=== PATIENT | male | born 1960 | race Hispanic/Latino ===

== ENCOUNTER 2017-01-22 12:25 | Day surgery (SDC) | payer MEDICAID ==
--- NOTE | 2017-01-21 10:16 | Anesthesia Consultation ---
Anesthesia Consult and Med Hx Date of service: 01/22/17 - Airway Anesthetic Teeth Evaluation: Poor ROM Head & Neck: Adequate Mental/Hyoid Distance: Adequate Mallampati Class: Class III Intubation Access Assessment: Probably Good - Pulmonary Exam CTA: Yes - Cardiac Exam Cardiac Exam: RRR - Pre-Operative Health Status ASA Pre-Surgery Classification: ASA3 Proposed Anesthetic Plan: General - Pulmonary Hx Smoking: Yes (2 PPD X 30 YRS) COPD: Yes (NO MEDS, denies diagnosis) Hx Sleep Apnea: No (ANTONI PRE SCREEN HIGH RISK) - Cardiovascular System Hx Hypertension: Yes (X 15 YRS) Hx Heart Attack/AMI: Yes (X 3- LAST ONE 2012) Hx Peripheral Vascular Disease: Yes (LEGS) - Central Nervous System Hx Back Pain: Yes (NECK AND BACK PAIN) - Endocrine Hx Insulin Dependent Diabetes: Yes (Takes metformin, also takes insulin when BS> 200) Hx Hypothyroidism: Yes - Other Systems Hx Substance Use: Yes (OCC MARIJUANA) Hx Cancer: No - Additional Comments Anesthesia Medical History Comments: Limited capacity as a historian. Denies previous anesthesia complications. Instructed to take metoprolol, preop. Metal in face, due to facial reconstruction.
[2017-01-21 11:13] LABS: Eosinophils % (Auto) 2.9 % (0.0-4.3); Hematocrit 40.7 % (35.5-45.6); Hemoglobin 13.5 gm/dl (11.8-15.2); Mean Corpuscular HGB Conc 33 % (32-34); Mean Corpuscular Hemoglobin 29 pg (28-32); Mean Corpuscular Volume 89 fl (84-94); Platelet Count 235 K/mm3 (140-440); Red Cell Distribution Width 14.8 % (13.2-15.2); White Blood Count 8.6 K/mm3 (4.5-11.0)
[2017-01-21 11:25] LABS: INR 0.95 (0.87-1.13); Partial Thromboplastin Time 27.1 Sec. (24.2-36.6)
[2017-01-21 11:40] LABS: Alanine Aminotransferase 18 units/L (7-56); Albumin 4.1 g/dL (3.9-5); Albumin/Globulin Ratio 1.4 %; Alkaline Phosphatase 88 units/L (35-129); Anion Gap 21 mmol/L; Blood Urea Nitrogen 13 mg/dL (9-20); Calcium 8.9 mg/dL (8.4-10.2); Carbon Dioxide 22 mmol/L (22-30); Chloride 100.7 mmol/L (98-107); Glucose 147 mg/dL (75-100); Potassium 3.7 mmol/L (3.6-5.0); Sodium 140 mmol/L (137-145); Total Protein 7.1 g/dL (6.3-8.2)
--- NOTE | 2017-01-22 08:52 | Short Stay Summary ---
Short Stay Documentation Date of service: 01/22/17 Narrative H&P: 56 yr old male last office visit -[facility] / GUARD PRESENT / CAD S/P ANGIOPLASTY [place] MAIN - S/P WI---ON BLOOD THINNER / HERNIA --VENTRAL/ NOCTURIA X 3-4 / PSA 22---HX OF ELEVATED PSA --SEEN BY DR. Crystal VILLA IN PAST FATHER HAD PROSTATE CANCER/ MOTHER BREAST & KIDNEY CANCER CLEARANCE TO--STOP BLOOD THINNER CYSTO, RPG, PROSTATE BX (PUS BX) - History Past Medical History: acute [place], CAD, hypertension, hypothyroidism Past Surgical History: PTCA Social history: no significant social history - Allergies and Medications Current Medications: Allergies codeine Adverse Reaction (Verified 01/16/17 15:25) Rash Home Medications Medication Instructions Recorded Confirmed Last Taken Type ALPRAZolam [Xanax TAB] 0.25 mg PO BID PRN 01/16/17 01/16/17 Unknown History Aspirin [Adult Low Dose Aspirin EC] 81 mg PO DAILY 01/16/17 01/16/17 Unknown History AtorvaSTATin [Lipitor] 40 mg PO DAILY 01/16/17 01/16/17 Unknown History Cefuroxime [Ceftin] 250 mg PO Q12H 01/16/17 01/16/17 Unknown History Clopidogrel Bisulfate [Plavix] 75 mg PO DAILY 01/16/17 01/16/17 Unknown History Gabapentin [Neurontin] 300 mg PO BID 01/16/17 01/16/17 Unknown History Insulin NPH/Regular [NovoLIN 70/30] 4 units SUB-Q TID 01/16/17 01/16/17 Unknown History Levothyroxine [Synthroid] 100 mcg PO QAM 01/16/17 01/16/17 Unknown History Metoprolol [Lopressor] 25 mg PO DAILY 01/16/17 01/16/17 Unknown History Nitroglycerin [Nitrostat] 0.4 mg SL Q5M PRN 01/16/17 01/16/17 12/26/16 History Paroxetine HCl [Paroxetine ER] 25 mg PO DAILY 01/16/17 01/16/17 Unknown History Ranitidine HCl [Zantac 150 MG TAB] 150 mg PO BID 01/16/17 01/16/17 Unknown History amLODIPine [Norvasc] 10 mg PO DAILY 01/16/17 01/16/17 Unknown History busPIRone [Buspar] 15 mg PO BID 01/16/17 01/16/17 Unknown History metFORMIN [Glucophage] 500 mg PO BID 01/16/17 01/16/17 Unknown History Active Medications Cefazolin Sodium (Ancef/Sterile Water 2 Gm/20 Ml) 2 gm IV PREOP NR Stop: 01/22/17 23:02 Famotidine (Pepcid) 20 mg IV PREOP NR Stop: 01/22/17 23:59 Sodium Chloride (Nacl 0.9% 1000 Ml) 1,000 mls @ 42 mls/hr IV DIRECT TAWNY Stop: 01/22/17 23:59 Midazolam HCl (Versed) 2 mg IV PREOP PRN PRN Reason: Agitation Stop: 01/22/17 23:59 - Physical exam General appearance: no acute distress, well-nourished Integumentary: no rash, no growths HEENT: Atraumatic, PERRLA, EOMI Lungs: Clear to auscultation, Normal air movement Breasts: deferred Heart: Regular rate, No murmurs Gastrointestinal: normal Extremities: no ischemia, No edema Neurological: Normal gait, Normal tone - Brief post op/procedure progress note Date of procedure: 01/22/17 Pre-op diagnosis: elevated psa, bph Post-op diagnosis: same Procedure: ccccysto, rpg, pus 30cc, bx prostate Anesthesia: GETA Surgeon: TAURUS WRIGHT Estimated blood loss: minimal Pathology: list (prostate cores) Specimen disposition: to lab Condition: stable - Hospital course Hospital course: cesar & nataliia on chart - Disposition Condition at discharge: Stable Disposition: DISCHARGED TO HOME OR SELFCARE Short Stay Discharge Plan Follow up with: RADHA JACOBSEN MD [Primary Care Provider] - 7 Days
[~2017-01-22 12:25] MED LIST: ANCEF/STERILE WATER 2 GM/20 ML IV NR; NACL 0.9% 1000 ML 1,000 ML IV SCH; PEPCID IV NR; VERSED IV PRN
[2017-01-22] MEDS ORDERED: ZOFRAN IV PRN (13:06)
[2017-01-22] MEDS ORDERED: DILAUDID IV PRN (13:06)
--- NOTE | 2017-01-22 13:06 | Anesthesia Day of Surgery ---
Anesthesia Day of Surgery - Day of Surgery Patient Examined: Yes Patient H&P Reviewed: Yes Patient is NPO: Yes Beta Blockers: Yes
[2017-01-22] MEDS ORDERED: NACL BACTERIOSTATIC INFILTRATI ONE (13:25)
[2017-01-22] MEDS ORDERED: XYLOCAINE MPF 2% ONE (14:04)
[2017-01-22] MEDS ORDERED: ZOFRAN ONE (14:04)
[2017-01-22] MEDS ORDERED: SUBLIMAZE ONE (14:04)
[2017-01-22] MEDS ORDERED: DIPRIVAN 10 MG/ML IV ONE (14:04)
[2017-01-22] MEDS ORDERED: DECADRON ONE (14:04)
[2017-01-22] MEDS ORDERED: ePHEDrine SULFATE ONE (14:50)
[2017-01-22] MEDS ORDERED: GARAMYCIN/NS 120MG/100ML 120 MG/100 ML BAG IV SCH (15:00)
[2017-01-22] MEDS ORDERED: WATER FOR IRRIG STERILE IR ONE (15:09)
--- NOTE | 2017-01-22 15:55 | Post Anesthesia Evaluation ---
- Post Anesthesia Evaluation Patient Participated: Yes Airway Patent: Yes Stable Respiratory Function: Yes Nausea/Vomiting: No Temp > 96.8F: Yes Pain Manageable: Yes Adequeate Hydration: Yes Anesthesia Complications: No Block Receding Appropriately: Not Applicable Patient on Ventilator: No
--- NOTE | 2017-01-22 16:23 | Fluoroscopy Report ---
RETROGRADE PYELOGRAM: There is adequate filling of the ureters and intrarenal collecting systems with no filling defects or anatomic abnormalities identified.
[2017-01-22 17:29] VITALS: BP 108/74
--- NOTE | 2017-01-22 20:46 | Operative Report ---
PREOPERATIVE DIAGNOSIS: Elevated PSA of 22, BPH. POSTOPERATIVE DIAGNOSIS: Elevated PSA of 22, BPH. SECONDARY DIAGNOSIS: Coronary artery disease. PROCEDURE: Cystoscopy, bilateral retrograde pyelograms, transrectal ultrasound and biopsies of prostate (30 mL). SURGEON: Arias Yeung MD ANESTHESIA: General. ESTIMATED BLOOD LOSS: Minimal. FLUIDS: Crystalloid. COMPLICATIONS: No complications. INDICATIONS: This 56-year-old gentleman was seen in the office, was found to have an elevated PSA of 22. It seemed had been seen by Dr. Jair Hamm in the past. He was referred by [facility]. Guard was present for the visit. We discussed options. He agreed to proceed with surgical intervention. He does have a family history of prostate cancer and his mother has breast cancer and kidney cancer. DESCRIPTION OF PROCEDURE: The patient was taken to the operative suite, placed in a supine position. After adequate general anesthesia, placed in a dorsal lithotomy position, prepped and draped in a sterile fashion. Pancystourethroscopy was performed with a 22-Czech Storz cystoscope. No urethral abnormalities. Displayed some mild trilobar prostatic obstruction in his bladder. No tumors or stones were noted. Both ureteral orifices in normal position. Bilateral retrograde pyelograms were obtained with an 8-Czech Nunda catheter and 8 mL of contrast. No filling defects or obstruction. Next, using a transrectal ultrasound probe, measurements were taken in 3 planes. He was noted to have 30 mL gland and no suspicious lesions could be appreciated. A 12-core biopsy was taken, four at the base, four at the mid and apex of the prostate. Rectal exam was benign. He was extubated and taken to recovery room in stable condition. He will go home on Cipro and Dilaudid. Follow up in the office. JOB# [id number] [facility]/AASHISH
--- NOTE | 2017-01-23 08:01 | Ultrasound Report ---
ULTRASOUND GUIDED INTRAOPERATIVE History: Guidance for prostate biopsy, BPH. Findings: Endorectal ultrasound guidance was provided by radiology during prostate biopsy by urology. The prostate gland measures 4.2 x 3.0 x 4.7 cm. Prostate volume measures 31 cc. Impression: Successful prostate biopsy under ultrasound guidance.
== END 2017-01-22 17:10 | disposition home or self-care (01) ==
LOC: OR 12:25
PROVIDERS: ATTEND Urology
DX: R97.20 Elevated prostate specific antigen [PSA] (principal); J44.9 Chronic obstructive pulmonary disease, unspecified; I10 Essential (primary) hypertension; E11.9 Type 2 diabetes mellitus without complications; E03.9 Hypothyroidism, unspecified; F12.90 Cannabis use, unspecified, uncomplicated; Z79.4 Long term (current) use of insulin; I25.10 Atherosclerotic heart disease of native coronary artery without angina pectoris; I25.2 Old myocardial infarction; F17.210 Nicotine dependence, cigarettes, uncomplicated; Z88.5 Allergy status to narcotic agent; Z86.79 Personal history of other diseases of the circulatory system; Z79.899 Other long term (current) drug therapy; Z95.5 Presence of coronary angioplasty implant and graft; Z80.42 Family history of malignant neoplasm of prostate; Z80.3 Family history of malignant neoplasm of breast; Z80.51 Family history of malignant neoplasm of kidney
CPT/HCPCS: 36415; 55700; 74420; 76998; 80053; 82962; 85025; 85610; 85730; 88305; A4217; C1726; C1758; J0690; J1100; J1580; J2250; J2405; J2704; J3010; J7030; Q9967

== ENCOUNTER 2017-02-20 11:29 | Outpatient (CLI) | payer MEDICAID ==
--- NOTE | 2017-02-21 09:33 | Nuclear Medicine Report ---
Whole body bone scan: Prostate cancer. Following injection of radionuclide imaging was obtained in approximately 3 hours. There is a good bone to background ratio. Activity is identified in the urinary tract. Focal increased uptake is identified at the right a.c. joint region and at the articular margins of both knees. The remaining whole body bone scan is generally unremarkable for any abnormal areas of increased or diminished radionuclide uptake. Impression: No evidence of metastatic disease.
== END 2017-02-20 11:30 | disposition home or self-care (01) ==
LOC: NM 11:29
PROVIDERS: ATTEND Urology
DX: C61 Malignant neoplasm of prostate (principal); I11.0 Hypertensive heart disease with heart failure; I50.9 Heart failure, unspecified; E11.9 Type 2 diabetes mellitus without complications; F32.9 Major depressive disorder, single episode, unspecified; F17.290 Nicotine dependence, other tobacco product, uncomplicated
CPT/HCPCS: 78306; A9503

== ENCOUNTER 2017-02-28 10:49 | Outpatient (CLI) | payer MEDICAID ==
--- NOTE | 2017-02-28 13:30 | Cat Scan Report ---
Abdomen pelvis without IV contrast: History: Malignant neoplasm of prostate. Findings: Bibasilar ground glass densities. No pleural or pericardial effusion. Small hiatal hernia. Normal spleen, pancreas and gallbladder. 1.6 cm and 1 cm cyst liver. Normal adrenal. Normal kidney parenchyma and bladder. Prostate measures 4 x 4.8 cm. No free intraperitoneal fluid or air. No evidence of adenopathy. Atherosclerotic abdominal aorta. Gaseous colon with moderate volume stool in colon. Normal appendix. Impression: Cysts in liver. Enlarged prostate. No obvious bony metastatic disease. Groundglass lungs bilaterally probably suggestive of pneumonitis, early interstitial fibrosis among other causes.
== END 2017-02-28 10:50 | disposition home or self-care (01) ==
LOC: CT 10:49
PROVIDERS: ATTEND Urology
DX: C61 Malignant neoplasm of prostate (principal); K44.9 Diaphragmatic hernia without obstruction or gangrene; K76.89 Other specified diseases of liver; I70.0 Atherosclerosis of aorta; N40.0 Benign prostatic hyperplasia without lower urinary tract symptoms; I11.0 Hypertensive heart disease with heart failure; I50.9 Heart failure, unspecified; E78.00 Pure hypercholesterolemia, unspecified; J44.9 Chronic obstructive pulmonary disease, unspecified; E11.9 Type 2 diabetes mellitus without complications; D64.9 Anemia, unspecified; F12.10 Cannabis abuse, uncomplicated; F17.200 Nicotine dependence, unspecified, uncomplicated
CPT/HCPCS: 74176

== ENCOUNTER 2017-04-10 19:44 | Emergency (ER) | payer MEDICAID ==
[2017-04-10 21:16] LABS: Bilirubin,Urine NEG (Negative); Blood,Urine NEG (Negative); Ketones,Urine NEG (Negative); Leukocyte Esterase,Urine NEG (Negative); Mucus,Urine 1+ /HPF; Nitrite,Urine NEG (Negative); Protein,Urine <15 mg/dL mg/dL (Negative)
--- NOTE | 2017-04-11 02:14 | Emergency Department Report ---
ED Male HPI - General Chief complaint: Urogenital-Male Stated complaint: CT SCAN Time Seen by Provider: 04/11/17 01:44 Source: patient, family Mode of arrival: Ambulatory Limitations: No Limitations - History of Present Illness Initial comments: Patient reports that he was sent by Dr. Yeung with his urologist to have ultrasound of his testes done because he's been having testicular pain. It was mentioned in the triage note that patient was sent for CAT scan but family verified and patient verified that it was ultrasound due to testicular pain. Patient had CAT scan of the abdomen and pelvis done in January 2017 he also had a full body scan done in January 2017. Patient has his medical record with them. Patient is under the care of Dr. Guevara for prostate cancer. He is not on chemotherapy. He reports that he is having testicular pain with swelling that' s been ongoing. Patient denies any urinary burning frequency or urgency. He reports pain to his testicles 8 out of 10 and sore. He said he is not taking any medication. Denies any fever or chills. Patient and said he is not had any surgery for prostate cancer nor has he had chemotherapy or radiation therapy. He denies any fever or chills. Denies any abdominal or back pain. Denies any nausea or vomiting. MD Complaint: testicle pain, testicle swelling -: month(s) Location: right testicle, left testicle Radiation: none Severity: severe Severity scale (0 -10): 8 Quality: other (soresore) Consistency: intermittent Improves with: none Worsens with: palpation, movement swelling. denies: discharge, mass, rash, urinary retention, blood in urine, dysuria, fever, nausea/vomiting, incontinence - Related Data Sexually active: No Home Medications Medication Instructions Recorded Confirmed Last Taken ALPRAZolam [Xanax TAB] 0.25 mg PO BID PRN 01/16/17 01/22/17 01/22/17 11:00 Aspirin [Adult Low Dose Aspirin EC] 81 mg PO DAILY 01/16/17 01/22/17 01/16/17 AtorvaSTATin [Lipitor] 40 mg PO DAILY 01/16/17 01/22/17 01/21/17 Clopidogrel Bisulfate [Plavix] 75 mg PO DAILY 01/16/17 01/22/17 01/15/17 Gabapentin [Neurontin] 300 mg PO BID 0501/22/17 01/21/17 Insulin NPH/Regular [NovoLIN 70/30] 4 units SUB-Q TID 01/16/17 01/22/17 12/31/16 Levothyroxine [Synthroid] 100 mcg PO QAM 01/16/17 01/22/17 01/22/17 11:00 Metoprolol [Lopressor] 25 mg PO DAILY 01/16/17 01/22/17 01/22/17 11:00 Nitroglycerin [Nitrostat] 0.4 mg SL Q5M PRN 01/16/17 01/22/17 Unknown Paroxetine HCl [Paroxetine ER] 25 mg PO DAILY 01/16/17 01/22/17 01/15/17 Ranitidine HCl [Zantac 150 MG TAB] 150 mg PO BID 01/16/17 01/22/17 01/15/17 amLODIPine [Norvasc] 10 mg PO DAILY 01/16/17 01/22/17 01/22/17 11:00 metFORMIN [Glucophage] 500 mg PO BID 01/16/17 01/22/17 01/20/17 Previous Rx's Medication Instructions Recorded Last Taken Type traMADol [Ultram] 50 mg PO Q6HR PRN #20 tablet 04/11/17 Unknown Rx Allergies Allergy/AdvReac Type Severity Reaction Status Date / Time codeine AdvReac Rash Verified 01/16/17 15:25 ED Review of Systems ROS: Stated complaint: CT SCAN Other details as noted in HPI Comment: All other systems reviewed and negative Constitutional: denies: chills, fever ENT: denies: throat pain Respiratory: no symptoms reported Cardiovascular: denies: chest pain, palpitations, edema, syncope Gastrointestinal: denies: abdominal pain, nausea, vomiting, diarrhea, constipation, hematemesis, melena, hematochezia Genitourinary: testicular pain. denies: urgency, dysuria, frequency, hematuria , discharge, testicular mass Musculoskeletal: denies: back pain, joint swelling, arthralgia, myalgia Skin: denies: rash Neurological: denies: headache, weakness, numbness, paresthesias, confusion, abnormal gait, vertigo ED Past Medical Hx - Past Medical History Previous Medical History?: Yes Hx Hypertension: Yes (X 15 YRS) Hx Heart Attack/AMI: Yes (X 3- LAST ONE 2012) Hx Congestive Heart Failure: Yes Hx Diabetes: Yes Hx GERD: Yes (DAILY MEDS) Hx COPD: Yes (NO MEDS, denies diagnosis) Hx Tuberculosis: Yes (DX TB 2011, RECEIVED TX/UNKNOWN CXR) - Surgical History Past Surgical History?: Yes Hx Coronary Stent: Yes (X 1 08/2016) - Family History Family history: diabetes, hypertension - Social History Smoking Status: Heavy Tobacco Smoker Substance Use Type: None Other Social History: Patient is single - Medications Home Medications: Home Medications Medication Instructions Recorded Confirmed Last Taken Type ALPRAZolam [Xanax TAB] 0.25 mg PO BID PRN 01/16/17 01/22/17 01/22/17 11:00 History Aspirin [Adult Low Dose Aspirin EC] 81 mg PO DAILY 01/16/17 01/22/17 01/16/17 History AtorvaSTATin [Lipitor] 40 mg PO DAILY 01/16/17 01/22/17 01/21/17 History Clopidogrel Bisulfate [Plavix] 75 mg PO DAILY 01/16/17 01/22/17 01/15/17 History Gabapentin [Neurontin] 300 mg PO BID 01/16/17 01/22/17 01/21/17 History Insulin NPH/Regular [NovoLIN 70/30] 4 units SUB-Q TID 01/16/17 01/22/17 History Levothyroxine [Synthroid] 100 mcg PO QAM 01/16/17 01/22/17 01/22/17 11:00 History Metoprolol [Lopressor] 25 mg PO DAILY 01/16/17 01/22/17 01/22/17 11:00 History Nitroglycerin [Nitrostat] 0.4 mg SL Q5M PRN 01/16/17 01/22/17 Unknown History Paroxetine HCl [Paroxetine ER] 25 mg PO DAILY 01/16/17 01/22/17 01/15/17 History Ranitidine HCl [Zantac 150 MG TAB] 150 mg PO BID 01/16/17 01/22/17 01/15/17 History amLODIPine [Norvasc] 10 mg PO DAILY 01/16/17 01/22/17 01/22/17 11:00 History metFORMIN [Glucophage] 500 mg PO BID 01/16/17 01/22/17 01/20/17 History traMADol [Ultram] 50 mg PO Q6HR PRN #20 tablet 04/11/17 Unknown Rx ED Physical Exam - General Limitations: No Limitations General appearance: alert, in no apparent distress - Head Head exam: Present: atraumatic, normocephalic, normal inspection - Eye Eye exam: Present: normal appearance, PERRL, EOMI Pupils: Present: normal accommodation - Neck Neck exam: Present: normal inspection, full ROM. Absent: tenderness, meningismus, lymphadenopathy - Respiratory Respiratory exam: Present: normal lung sounds bilaterally. Absent: respiratory distress, wheezes, chest wall tenderness - Cardiovascular Cardiovascular Exam: Present: regular rate, normal rhythm, normal heart sounds - GI/Abdominal GI/Abdominal exam: Present: soft, normal bowel sounds. Absent: distended, tenderness, guarding, rebound, rigid, hypoactive bowel sounds, organomegaly, mass, bruit - exam: Present: testicular tenderness, scrotal swelling. Absent: normal inspection, urethral discharge, vertical testicular lie, circumcision External exam: Present: swelling. Absent: erythema, lesions, lacerations, ecchymosis, bleeding - Expanded Exam Expanded Male exam: Absent: phimosis, paraphimosis, penile swelling, lesions, induration, erythema, perineal induration, balanitis, priapism exam: Testicular Tenderness: Left, Right, Testicular Swelling: Left, Right - Extremities Exam Extremities exam: Present: normal inspection, full ROM, normal capillary refill. Absent: tenderness, pedal edema, joint swelling, calf tenderness - Back Exam Back exam: Present: normal inspection, full ROM. Absent: tenderness, CVA tenderness (R), CVA tenderness (L), muscle spasm, paraspinal tenderness, vertebral tenderness, rash noted - Neurological Exam Neurological exam: Present: alert, oriented X3, normal gait, reflexes normal. Absent: motor sensory deficit - Psychiatric Psychiatric exam: Present: normal affect, normal mood - Skin Skin exam: Present: warm, dry, intact, normal color. Absent: rash ED Course Vital Signs 04/10/17 04/10/17 04/11/17 19:59 23:22 02:16 Temperature 98.3 F 98.6 F 98.2 F Pulse Rate 81 67 73 Respiratory 18 18 18 Rate Blood Pressure 127/87 142/90 Blood Pressure 139/90 [Right] O2 Sat by Pulse 97 97 96 Oximetry 08/11/17 08/11/17 02:35 03:37 Temperature 98 F Pulse Rate 64 Respiratory 18 18 Rate Blood Pressure Blood Pressure 142/90 [Right] O2 Sat by Pulse 94 Oximetry - Reevaluation(s) Reevaluation #1: 04/11/17 05:25 Patient is stable and still awaiting an ultrasound report. He was given Gerber 5 /325 2 tablets along with Benadryl 50 mg by mouth and his pain to his testicle is 0 out of 10 at present ED Medical Decision Making - Radiology Data Radiology results: report reviewed Ultrasound of the testicle revealed homogeneous appearance of both testes. No testicular torsion or epididymal orchitis. Subcentimeter hypo-acholic lesion in both epididymal head, with low level internal echoes, probably complex cyst. Minimal bilateral hydrocele. - Medical Decision Making ED course: Patient here sent from Dr. Hammer's office for ultrasound to evaluate testicular pain and scrotal swelling. Patient was given Gerber 5/325 2 tablets along with Benadryl 50 mg in Emergency room which relieved his pain. Patient had no other symptoms but testicular pain that he said he has been having for a while. Ultrasound done and showed patient with homogeneous appearance of both testes. No testicular torsion. See additional report below under diagnostics. Urinalysis negative for any bacterial infection. This was discussed with patient and he voiced understanding discharge diagnosis and treatment plan. Patient is stable at present and in no pain. Diagnostic/labs:Ultrasound of the testicle revealed homogeneous appearance of both testes. No testicular torsion or epididymal orchitis. Subcentimeter hypo- acholic lesion in both epididymal head, with low level internal echoes, probably complex cyst. Minimal bilateral hydrocele.. Urinalysis negative for bacterial infection. Assessment/plan 1. Testicular pain, bilaterally 2. Epididymal lesions probably complex cysts 3. Bilateral hydroceles Patient and family given a report on ultrasound and urine analysis. Patient treated for pain in emergency room. He will follow-up with Dr. Yeung to call in the morning to schedule an appointment for follow-up visit. Patient discharged home with prescription for Ultram. Patient discharged home with family in stable condition. Critical care attestation.: If time is entered above; I have spent that time in minutes in the direct care of this critically ill patient, excluding procedure time. ED Disposition Clinical Impression: Bilateral hydrocele, Testicular/scrotal pain, Cyst of epididymis determined by ultrasound Disposition: DC-01 TO HOME OR SELFCARE Is pt being admited?: No Does the pt Need Aspirin: No Condition: Stable Instructions: Testicle Pain (ED), Hydrocele (ED) Additional Instructions: You have epididymal cysts and will need to call Dr. Guevara's office later this morning in to schedule appointment for follow-up visit. Please do not drive or operate heavy machinery while taking Ultram as this can cause drowsiness Increase your fluid intake. You can wear scrotal support to help decrease pain. Prescriptions: traMADol [Ultram] 50 mg PO Q6HR PRN #20 tablet PRN Reason: Pain Referrals: TAURUS YEUNG MD [Staff Physician] - 04/11/17 Forms: Accompanied Note
[2017-04-11] MEDS ORDERED: NORCO 5/325 PO ONE (02:24)
[2017-04-11] MEDS ORDERED: BENADRYL PO ONE (02:24)
--- NOTE | 2017-04-11 05:26 | Ultrasound Report ---
FINAL REPORT EXAM: US TESTICULAR DOPPLER COMP HISTORY: Testicular pain and swelling. TECHNIQUE: Directed real-time grayscale and color Doppler ultrasound examination of the scrotum was performed. No prior studies are available for comparison. FINDINGS: The right testis measures 2.4 x 3.4 x 5.0 cm, and is homogeneous in echotexture, without discrete lesion. The right epididymal head measures 1.0 x 0.9 x 1.4 cm, and contains a rounded hypoechoic structure measuring 0.9 cm. This contains low-level internal echoes, probably complex cyst. The left testis measures 2.6 x 2.9 x 4.7 cm, and is homogeneous in echotexture, without discrete lesion. The left epididymal head measures 1.1 x 1.2 x 1.4 cm, and contains a hypoechoic structure measuring 0.7 cm. This also contains low-level internal echoes, probably complex cyst. Appropriate color vascularity seen within both testes, without evidence of torsion or epididymo-orchitis. There are minimal bilateral hydroceles. IMPRESSION: 1. Homogeneous appearance of both testes. No testicular torsion or epididymo-orchitis. 2. Subcentimeter hypoechoic lesions in both epididymal heads, with low level internal echoes, probably complex cysts. 3. Minimal bilateral hydroceles.
[2017-04-11 06:15] VITALS: BP 124/85
== END 2017-04-11 06:15 | disposition home or self-care (01) ==
LOC: ED 19:44
DX: N43.3 Hydrocele, unspecified (principal); N50.3 Cyst of epididymis; I10 Essential (primary) hypertension; I25.2 Old myocardial infarction; I50.9 Heart failure, unspecified; E11.9 Type 2 diabetes mellitus without complications; K21.9 Gastro-esophageal reflux disease without esophagitis; J44.9 Chronic obstructive pulmonary disease, unspecified; F17.200 Nicotine dependence, unspecified, uncomplicated
CPT/HCPCS: 81001; 93975

== ENCOUNTER 2017-11-22 23:45 | Emergency (ER) | payer MEDICAID ==
--- NOTE | 2017-11-23 01:14 | Cat Scan Report ---
FINAL REPORT PROCEDURE: CT HEAD/BRAIN WO CON TECHNIQUE: Computerized tomography of the head was performed without contrast material. HISTORY: head trauma, intox, on plavix COMPARISON: No prior studies are available for comparison. FINDINGS: Skull and scalp: Normal. Paranasal sinuses: Normal. Ventricles and subarachnoid spaces: Normal. Cerebrum: No evidence of hemorrhage, acute infarction or mass . Cerebellum and brainstem: No evidence of hemorrhage, acute infarction or mass. Vasculature: Normal. Comments: There are fractures of the nasal bone. These could be old. There are old right-sided facial and orbital fractures. There is fluid in the mastoid air cells bilaterally.. IMPRESSION: There is no acute intracranial abnormality.
--- NOTE | 2017-11-23 01:20 | Cat Scan Report ---
FINAL REPORT PROCEDURE: CT CERVICAL SPINE WO CON TECHNIQUE: Computerized tomography of the cervical spine was performed from the skull base to T1 without contrast material. HISTORY: possible intox, on plavix, head trauma COMPARISON: No prior studies are available for comparison. FINDINGS: There are no fractures or malalignments. There is moderate multilevel degenerative disc and facet change bilaterally. There is multilevel bilateral foraminal stenosis. There is no facet dislocation. Prevertebral soft tissues are normal in thickness. IMPRESSION: No significant abnormality.
[2017-11-23 01:25] LABS: Basophils # (Auto) 0.1 K/mm3 (0.0-0.1); Basophils % (Auto) 0.6 % (0.0-1.8); Eosinophils # (Auto) 0.1 K/mm3 (0.0-0.4); Hematocrit 39.7 % (35.5-45.6); Hemoglobin 12.9 gm/dl (11.8-15.2); Lymphocytes # (Auto) 0.6 K/mm3 (1.2-5.4); Lymphocytes % (Auto) 6.6 % (13.4-35.0); Mean Corpuscular HGB Conc 33 % (32-34); Mean Corpuscular Hemoglobin 29 pg (28-32); Mean Corpuscular Volume 89 fl (84-94); Monocytes # (Auto) 0.5 K/mm3 (0.0-0.8); Monocytes % (Auto) 5.2 % (0.0-7.3); Platelet Count 251 K/mm3 (140-440); Red Blood Count 4.46 M/mm3 (3.65-5.03); Red Cell Distribution Width 15.5 % (13.2-15.2)
--- NOTE | 2017-11-23 01:32 | Emergency Department Report ---
Blank Doc - Documentation Documentation: 3 cm Laceration on back of occipital scalp stapled closed using 4 ignacia, wound closed, irrigated with saline and wound cleanser before closure. good closure achieved, I informed Dr. Valdez of this
[2017-11-23 01:56] LABS: Alanine Aminotransferase 12 units/L (7-56); Albumin 3.7 g/dL (3.9-5); BUN/Creatinine Ratio 11; Blood Urea Nitrogen 8 mg/dL (9-20); Calcium 8.6 mg/dL (8.4-10.2); Hemolysis Index 26
[2017-11-23 01:58] LABS: INR 1.02 (0.87-1.13)
--- NOTE | 2017-11-23 02:48 | XRay Report ---
FINAL REPORT EXAM: XR WRIST 3+V RT HISTORY: right wrist pain COMPARISON: None available. FINDINGS: Three views of the left wrist obtained. Transverse nondisplaced fracture of the ulnar styloid process. Soft tissue swelling. Normal alignment of the carpal bones. Radiocarpal joint space preserved. Mild narrowing hypertrophic spurring of the 1st carpometacarpal joint. IMPRESSION: Transverse nondisplaced fracture of the ulnar styloid process.
[2017-11-23 05:15] LABS: Cocaine Screen,Urine PRESUMPTIVE NEGATIVE; Methadone Screen,Urine PRESUMPTIVE NEGATIVE; Opiate Screen,Urine PRESUMPTIVE NEGATIVE
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
[2017-11-23] MEDS ORDERED: BOOSTRIX IM ONE (05:25)
[2017-11-23 05:48] LABS: Amphetamine Screen,Urine PRESUMPTIVE POSITIVE; Benzodiazepines Screen,Urine PRESUMPTIVE POSITIVE; Cannabinoid Screen,Urine PRESUMPTIVE POSITIVE
[2017-11-23] MEDS ORDERED: ZOFRAN ODT PO ONE (06:36)
[2017-11-23 06:47] VITALS: BP 110/78
== END 2017-11-23 06:48 | disposition home or self-care (01) ==
LOC: ED 23:45
DX: S52.614A Nondisplaced fracture of right ulna styloid process, initial encounter for closed fracture (principal); S01.01XA Laceration without foreign body of scalp, initial encounter; F15.10 Other stimulant abuse, uncomplicated; F13.10 Sedative, hypnotic or anxiolytic abuse, uncomplicated; F12.10 Cannabis abuse, uncomplicated; I11.0 Hypertensive heart disease with heart failure; I50.9 Heart failure, unspecified; I25.2 Old myocardial infarction; E11.9 Type 2 diabetes mellitus without complications; K21.9 Gastro-esophageal reflux disease without esophagitis; J44.9 Chronic obstructive pulmonary disease, unspecified; F17.200 Nicotine dependence, unspecified, uncomplicated; C61 Malignant neoplasm of prostate; Z86.11 Personal history of tuberculosis; Z88.5 Allergy status to narcotic agent; Z95.818 Presence of other cardiac implants and grafts; Z79.899 Other long term (current) drug therapy; Y08.89XA Assault by other specified means, initial encounter; Y93.89 Activity, other specified; Y99.8 Other external cause status; Y92.89 Other specified places as the place of occurrence of the external cause
CPT/HCPCS: 12002; 29125; 36415; 70450; 72125; 73110; 80053; 80307; 82140; 85025; 85610; 85730; 90471; 90715; 99285; G0480; 80320; Q0162

== ENCOUNTER 2019-02-11 09:37 | Outpatient (CLI) | payer MEDICAID ==
--- NOTE | 2019-02-12 08:22 | PET Report ---
PET/CT:02/11/19 09:37:00 CLINICAL: Prostate cancer restaging. RADIOPHARMACEUTICAL: 13.828mCi F18-FDG. COMPARISON: CT abdomen and pelvis without contrast 02/28/17 TECHNIQUE- Following intravenous injection of F-18 FDG and an approximately 60 minute uptake period, CT and PET images from the mid skull to the upper thighs were acquired with the patient in the fasted state. No contrast was administered. The CT protocol used for this PET CT study is designed for attenuation correction and anatomic localization of PET abnormalities. This clinic specialist CT is not desired to produce and cannot replace, [id number] diagnostic CT scans with specific imaging protocols for different body parts and indications. Plasma glucose the time of this test: 131g/dl. The standardized uptake values (SUV) are normalized to patient body weight and indicate the highest activity concentration (SUV max) in a given disease site. FINDINGS: Brain--Physiologic FDG uptake in the visualized regions of the brain. Neck--Physiologic FDG uptake in mucosal structures. No mass or lymphadenopathy. Chest--Physiologic FDG uptake in mediastinal blood pool and myocardium. Lungs--No abnormal uptake. No pulmonary nodule or mass. Pleura/pericardium--No abnormal uptake. Thoracic nodes--No abnormal uptake. Hepatobiliary--No abnormal uptake. Liver background SUV mean, as a reference for comparing FDG studies, is 5.1 . No liver mass. Spleen--No abnormal uptake. Pancreas--No abnormal uptake. Adrenal Glands--No abnormal uptake. Kidneys/Ureters/Bladder--No abnormal uptake. Abdominopelvic Nodes--No abnormal uptake. Bowel/Peritoneum/Mesentery--No abnormal uptake. Pelvic organs--No abnormal uptake. The prostate is small with normal . Bones/Soft Tissues--No abnormal uptake and no suspicious bone lesion. Other findings: IMPRESSION- Negative study with no evidence of metastasis.
== END 2019-02-11 09:38 | disposition home or self-care (01) ==
LOC: EEVIPCON 09:37 → PET 09:37
PROVIDERS: ATTEND Internal Medicine Hematology & Oncology
DX: C61 Malignant neoplasm of prostate (principal); I11.0 Hypertensive heart disease with heart failure; I50.9 Heart failure, unspecified; E78.00 Pure hypercholesterolemia, unspecified; J44.9 Chronic obstructive pulmonary disease, unspecified; E11.9 Type 2 diabetes mellitus without complications; E03.9 Hypothyroidism, unspecified
CPT/HCPCS: 78815; 82962; A9552